=== PATIENT | female | born 1950 | race Caucasian/White ===

== ENCOUNTER 2016-07-19 11:26 | Emergency (ER) | payer OTHER ==
[2016-07-19 11:31] VITALS: TEMP 97.9
--- NOTE | 2016-07-19 11:46 | CPEKG ---
Heart Rate: 63 RR Interval: 952 P-R Interval: 156 QRSD Interval: 82 QT Interval: 400 QTC Interval: 410 P [place]: 7 QRS [place]: 54 T Wave [place]: 9 EKG Severity - NORMAL ECG - EKG Impression: SINUS RHYTHM Electronically Signed By: Damián Ramirez 19-Jul-2016 14:16:02
[2016-07-19] MEDS ORDERED: NS 1,000 ML IV ONE (11:51)
--- NOTE | 2016-07-19 11:56 | EDPHY ---
H & P Stated Complaint: JAW PAIN WITH HX OF SAME DIZZINESS, NAUSEA HPI/ROS: CHIEF COMPLAINT: jaw pain, dizziness HISTORY OF PRESENT ILLNESS: patient reports a 2 hour history of jaw pain. This started while in yoga this morning started on the left and quickly became apparent on the right side. It was mild to moderate persistent. Then associated with a mild bilateral headache, dizziness. No chest pain of any kind prior to this, during this or at this time. No shortness of breath. Nausea but no vomiting. No diaphoresis. No abdominal or urinary complaints. No syncope. Symptoms are similar to many episodes she has had in the past that she attributes to stress, except the jaw pain started prior to the sensation of stress. She has no fever or chills. She took her Xanax and 325 mg aspirin today. These have mildly improved her symptoms. No other associated complaints or modifying factors. FAMILY HISTORY CARDIAC: mother had an NE at 50 PRIOR CARDIAC WORKUP: stress test and angiography 3-4 years ago. Reportedly normal REVIEW OF SYSTEMS: Ten systems reviewed and are negative unless otherwise noted in the HPI EXAMINATION: General Appearance: Alert, no distress Head: normocephalic, atraumatic Eyes: Pupils equal and round, no conjunctival pallor or injection ENT, Mouth: Mucous membranes moist Neck: Normal inspection, supple, non-tender Respiratory: Lungs are clear to auscultation. No wheezing, rhonchi or crackles. Cardiovascular: Regular rate and rhythm . No murmur. Pulses intact distally. Gastrointestinal: Abdomen is soft and nontender Back: non-tender, no bony abnormalities Neurological: A&O, nonfocal, normal gait . Strength is symmetric in all limbs. No dysmetria. No pronator drift. Skin: Warm and dry, no rash Extremities: Nontender, no pedal edema Psychiatric: Mood and affect normal DIFFERENTIAL DIAGNOSES: Including but not limited to in no particular order: Acute Chest Pain, ACS, Stable Angina, Pneumonia, PE, duodenitis, gastritis, esophagitis, GERD MDM: 11:52 a.m. possible cardiac equivalent without any chest pain. The symptoms started around 10:00 a.m. while she was in yoga. This was jaw pain, mild headache, dizziness and feeling somewhat anxious. She had no chest pain of any kind previous or during. These are similar to prior episodes with the exception of the jaw pain starting before her anxiety. She does have a history of these that elicited a stress test and coronary angiogram 4 years ago that was reportedly normal. She is resting comfortably in hemodynamically stable at this time 1:15 p.m. jaw pain, mild headache and dizziness. Patient has the appearance of a possible anginal equivalent. EKG is unremarkable. Troponin is negative. Chest x-ray normal. Laboratory studies are all within normal limits. We had a discussion regarding all of her symptoms, and she says that she is feeling significantly better. I did offer and recommend admission for serial troponins to rule out ACS, although this is of low suspicion. The patient has declined. We discussed risks, benefits and alternatives, she is comfortable being discharged home. She says that she feels 100% better and feels that the Xanax was helpful. She has no chest pain or any symptoms of any kind at this time. She prefers to see her primary care physician and discussed cardiology referral rather than being admitted at this time. She is stable for discharge home and will follow up with them accordingly. Return to the ER for any chest pain Or return of symptoms. EKG: Interpreted by Dr. Ramirez rate is 63 beats per minute. Normal sinus rhythm. [place] interval 156. QTC interval 400. Normal axis. No ST depression or elevation. T-waves inverted only in AVR. No signs of ischemia. Interpretation: Normal sinus rhythm SUPERVISION: This patient was independently evaluated without the aide of supervising physician. Source: Patient, Family, Old records Exam Limitations: No limitations - Personal History Current Tetanus/Diphtheria Vaccine: No Current Tetanus Diphtheria and Acellular Pertussis (TDAP): No - Medical/Surgical History Hx Asthma: No Hx Chronic Respiratory Disease: No Hx Diabetes: No Hx Cardiac Disease: No Hx Renal Disease: No Hx Cirrhosis: No Hx Alcoholism: No Hx HIV/AIDS: No Hx Splenectomy or Spleen Trauma: No Other PMH: JAW PAIN ? REASON, HTN, HIGH CHOLESTEROL. DEPRESSION - Social History Smoking Status: Never smoked Constitutional: Initial Vital Signs Temperature (C) 97.9 F 07/19/16 11:28 Heart Rate 66 07/19/16 11:28 Respiratory Rate 18 07/19/16 11:28 Blood Pressure 130/88 H 07/19/16 11:28 O2 Sat (%) 94 07/19/16 11:28 O2 Delivery Mode Room Air Allergies/Adverse Reactions: Penicillins Allergy (Severe, Verified 07/19/16 11:31) Rash Sulfa (Sulfonamide Antibiotics) Allergy (Verified 07/19/16 11:31) Home Medications: Medication Instructions Recorded Atorvastatin Calcium [Lipitor 10 10 mg PO DAILY 07/19/16 mg (*)] Hydrochlorothiazide [HCTZ (*)] 25 mg PO DAILY 07/19/16 MIRTAZAPINE [Remeron 7.5 mg] 30 mg PO HS 07/19/16 Metoprolol Succinate 50 mg PO 07/19/16 Valacyclovir HCl [Valacyclovir] 500 mg PO 07/19/16 Medical Decision Making - Data Points Laboratory Results: Laboratory Results 07/19/16 11:44 07/19/16 11:44 07/19/16 07/19/16 07/19/16 11:44 11:44 11:44 WBC 5.37 10^3/uL 10^3/uL (3.80-9.50) RBC 4.96 10^6/uL 10^6/uL (4.18-5.33) Hgb 15.4 g/dL g/dL (12.6-16.3) Hct 43.6 % % (38.0-47.0) MCV 87.9 fL fL (81.5-99.8) MCH 31.0 pg pg (27.9-34.1) MCHC 35.3 g/dL g/dL (32.4-36.7) RDW 12.5 % % (11.5-15.2) Plt Count 159 10^3/uL 10^3/uL (150-400) MPV 10.1 fL fL (8.7-11.7) Neut % (Auto) 70.7 % % (39.3-74.2) Lymph % (Auto) 20.3 % % (15.0-45.0) [place] % (Auto) 8.0 % % (4.5-13.0) Eos % (Auto) 0.4 % L % (0.6-7.6) Baso % (Auto) 0.2 % L % (0.3-1.7) Nucleat RBC Rel Count 0.0 % % (0.0-0.2) Absolute Neuts (auto) 3.80 10^3/uL 10^3/uL (1.70-6.50) Absolute Lymphs (auto) 1.09 10^3/uL 10^3/uL (1.00-3.00) Absolute Monos (auto) 0.43 10^3/uL 10^3/uL (0.30-0.80) Absolute Eos (auto) 0.02 10^3/uL L 10^3/uL (0.03-0.40) Absolute Basos (auto) 0.01 10^3/uL L 10^3/uL (0.02-0.10) Absolute Nucleated RBC 0.00 10^3/uL 10^3/uL (0-0.01) Immature Gran % 0.4 % % (0.0-1.1) Immature Gran # 0.02 10^3/uL 10^3/uL (0.00-0.10) PT 13.0 SEC SEC (12.0-15.0) INR 0.99 (0.83-1.16) APTT 24.9 SEC SEC (23.0-38.0) Sodium 141 mEq/L mEq/L (134-144) Potassium 4.0 mEq/L mEq/L (3.5-5.2) Chloride 105 mEq/L mEq/L (97-110) Carbon Dioxide 24 mEq/l mEq/l (22-31) Anion Gap 12 mEq/L mEq/L (8-16) BUN 15 mg/dL mg/dL (7-23) Creatinine 0.7 mg/dL mg/dL (0.6-1.0) Estimated GFR > 60 Glucose 96 mg/dL mg/dL (70-100) Calcium 9.6 mg/dL mg/dL (8.5-10.4) Total Bilirubin 0.8 mg/dL mg/dL (0.1-1.4) Conjugated Bilirubin 0.3 mg/dL mg/dL (0.0-0.5) Unconjugated Bilirubin 0.5 mg/dL mg/dL (0.0-1.1) AST 24 IU/L IU/L (14-46) ALT 40 IU/L IU/L (9-52) Alkaline Phosphatase 49 IU/L IU/L (38-126) Troponin I < 0.012 ng/mL ng/mL (0-0.034) NT-Pro-B Natriuret Pep 85 pg/mL pg/mL (0-125) Total Protein 6.7 g/dL g/dL (6.3-8.2) Albumin 4.3 g/dL g/dL (3.5-5.0) Medications Given: Discontinued Medications Sodium Chloride (Ns) 1,000 mls @ 0 mls/hr IV ONCE ONE PRN Reason: Wide Open Stop: 07/19/16 11:52 Last Admin: 07/19/16 12:10 Dose: 1,000 mls Departure - Departure Disposition: Home, Routine, Self-Care Clinical Impression: Jaw pain, Dizziness Condition: Good Instructions: Dizziness (ED) Additional Instructions: Contact primary care physician and information security specialist for follow-up. Return to ER should she change her mind. Please return to the ER for any chest pain of any kind. Referrals: Enriqueta Navarro MD [Primary Care Provider] - As per Instructions Ira Zazueta MD [Medical Doctor] - As per Instructions
[2016-07-19 11:58] LABS: % IMMATURE GRANULYOCYTES 0.4 % (0.0-1.1); ABSOLUTE IMMATURE GRANULOCYTES 0.02 10^3/uL (0.00-0.10); ADD DIFF? NO; ADD MORPH? NO; ADD SCAN? NO; ATYPICAL LYMPHOCYTE FLAG 0 (0-99); FRAGMENT RBC FLAG 0 (0-99); HEMATOCRIT 43.6 % (38.0-47.0); HEMOGLOBIN 15.4 g/dL (12.6-16.3); LEFT SHIFT FLG 0 (0-99); LIPEMIA HEMOLYSIS FLAG 90 (0-99); MEAN CELL HEMOGLOBIN CONCENTR. 35.3 g/dL (32.4-36.7); MEAN CELL VOLUME 87.9 fL (81.5-99.8); MEAN PLATELET VOLUME 10.1 fL (8.7-11.7); PLATELET CLUMPS FLAG 0 (0-99); PLATELET COUNT 159 10^3/uL (150-400); RED BLOOD CELL COUNT 4.96 10^6/uL (4.18-5.33); RED CELL DISTRIBUTION WIDTH 12.5 % (11.5-15.2)
[2016-07-19 12:05] LABS: INR 0.99 (0.83-1.16)
[2016-07-19 12:06] LABS: APTT 24.9 SEC (23.0-38.0)
[2016-07-19 12:12] LABS: ALANINE AMINOTRANSFERASE 40 IU/L (9-52); ALBUMIN 4.3 g/dL (3.5-5.0); ALKALINE PHOSPHATASE 49 IU/L (38-126); ANION GAP 12 mEq/L (8-16); ASPARTATE AMINOTRANSFERASE 24 IU/L (14-46); BILIRUBIN,TOTAL 0.8 mg/dL (0.1-1.4); BILIRUBIN-CONJUGATED 0.3 mg/dL (0.0-0.5); BILIRUBIN-UNCONJUGATED 0.5 mg/dL (0.0-1.1); CALCIUM 9.6 mg/dL (8.5-10.4); CARBON DIOXIDE 24 mEq/l (22-31); CHLORIDE 105 mEq/L (97-110); CREATININE 0.7 mg/dL (0.6-1.0); GLOMERULAR FILTRATION RATE > 60; GLUCOSE 96 mg/dL (70-100); SODIUM 141 mEq/L (134-144); TOTAL PROTEIN 6.7 g/dL (6.3-8.2)
[2016-07-19 12:23] LABS: TROPONIN I < 0.012 ng/mL (0-0.034)
[2016-07-19 13:58] VITALS: BP 112/71; PULSE 62; RESP 14; O2SAT 95
== END 2016-07-19 13:58 | disposition home or self-care (01) ==
DX: R68.84 Jaw pain (principal); R42 Dizziness and giddiness; I10 Essential (primary) hypertension

== ENCOUNTER 2016-09-10 07:14 | Day surgery (SDC) | payer OTHER ==
[2016-09-10] MEDS ORDERED: FAMOTIDINE 20 MG TAB PO ONE (07:16)
[2016-09-10] MEDS ORDERED: ASPIRIN EC 325 MG TAB PO ONE ×2 (07:16→07:38)
[2016-09-10] MEDS ORDERED: diphenhydrAMINE 25 MG CAP PO ONE ×2 (07:16→07:38)
[2016-09-10] MEDS ORDERED: DIAZEPAM 5 MG TAB PO ONE (07:16)
[2016-09-10] MEDS ORDERED: NS 1,000 ML IV ONE (07:16)
--- NOTE | 2016-09-10 07:34 | CPEKG ---
Heart Rate: 60 RR Interval: 1000 P-R Interval: 160 QRSD Interval: 78 QT Interval: 400 QTC Interval: 400 P [place]: 70 QRS [place]: 58 T Wave [place]: 13 EKG Severity - NORMAL ECG - EKG Impression: SINUS RHYTHM Electronically Signed By: Keith Brooks 11-Sep-2016 08:23:22
[2016-09-10] MEDS ORDERED: DIAZEPAM 5 MG TAB ONE (07:38)
[2016-09-10] MEDS ORDERED: FAMOTIDINE 20 MG TAB ONE (07:38)
[2016-09-10 08:02] LABS: % IMMATURE GRANULYOCYTES 0.4 % (0.0-1.1); ABSOLUTE IMMATURE GRANULOCYTES 0.02 10^3/uL (0.00-0.10); ADD DIFF? NO; ADD MORPH? NO; ADD SCAN? NO; ATYPICAL LYMPHOCYTE FLAG 10 (0-99); FRAGMENT RBC FLAG 0 (0-99); HEMATOCRIT 41.5 % (38.0-47.0); HEMOGLOBIN 14.7 g/dL (12.6-16.3); LEFT SHIFT FLG 0 (0-99); LIPEMIA HEMOLYSIS FLAG 90 (0-99); MEAN CELL HEMOGLOBIN 30.4 pg (27.9-34.1); MEAN CELL HEMOGLOBIN CONCENTR. 35.4 g/dL (32.4-36.7); MEAN CELL VOLUME 85.7 fL (81.5-99.8); MEAN PLATELET VOLUME 9.7 fL (8.7-11.7); PLATELET CLUMPS FLAG 10 (0-99); PLATELET COUNT 180 10^3/uL (150-400); RED BLOOD CELL COUNT 4.84 10^6/uL (4.18-5.33); RED CELL DISTRIBUTION WIDTH 12.1 % (11.5-15.2)
[2016-09-10 08:08] LABS: INR 0.91 (0.83-1.16); PROTIME(PATIENT) 12.2 SEC (12.0-15.0)
[2016-09-10 08:17] LABS: ANION GAP 13 mEq/L (8-16); CALCIUM 9.4 mg/dL (8.5-10.4); CARBON DIOXIDE 25 mEq/l (22-31); CHLORIDE 104 mEq/L (97-110); CHOLESTEROL 133 mg/dL (140-220); CHOLESTEROL/HDL RATIO 3.41 RATIO (1.00-4.44); CREATININE 0.8 mg/dL (0.6-1.0); GLOMERULAR FILTRATION RATE > 60; GLUCOSE 104 mg/dL (70-100); HIGH DENSITY LIPOPROTEIN 39 mg/dL (40-85); LDL/HDL RATIO 1.41 RATIO (1.00-3.22); LOW DENSITY LIPOPROTEIN 55 mg/dL (80-100); NON-HIGH DENSITY LIPOPROTEIN 94 mg/dL (90-129); POTASSIUM 3.8 mEq/L (3.5-5.2); SODIUM 142 mEq/L (134-144); TRIGLYCERIDE 195 mg/dL (35-135); VERY LOW DENSITY LIPOPROTEINS 39 mg/dL (8-25)
[2016-09-10] MEDS ORDERED: MIDAZOLAM 2 MG/2 ML VIAL ONE (09:14)
[2016-09-10] MEDS ORDERED: fentaNYL 100 MCG/2 ML INJ ONE (09:14)
[2016-09-10] MEDS ORDERED: IOPAMIDOL (ISOVUE-370) 150 ML BTL IV ONE ×2 (09:14→10:09)
[2016-09-10] MEDS ORDERED: LIDOCAINE 1% 30 ML SDV ONE (09:14)
[2016-09-10] MEDS ORDERED: VERAPAMIL 5 MG/2 ML VIAL ONE (09:16)
[2016-09-10] MEDS ORDERED: HEPARIN 10,000 UNIT/10 ML MDV ONE (09:16)
[2016-09-10] MEDS ORDERED: NITROGLYCERIN 1,500 MCG/15 ML VIAL MISC ONE (09:55)
--- NOTE | 2016-09-10 11:01 | PDDXCAT ---
Diagnostic Cath Note - . Date: 09/10/16 Intervention: Intravascular Ultrasound *Procedure 1. Selective coronary angiography 2. Intravascular Ultrasound (IVUS) Indication: I was called for intraoperative consultation by Dr. Zazueta after the identification of an ostial right coronary artery (RCA) lesion on selective coronary angiography. Access: right radial artery *Materials Left Heart Cath size: 5F Left Heart Cath materials: JR4.0, IVUS *Findings-Selective Coronary Angiography RCA: There is a 40%-50% ostial RCA lesion which was partially responsive to Nitroglycerin. We proceeded with IVUS to ensure the lesion is not obstructive. IVUS revealed there is an eccentric and partially calcified atherosclerotic lesion comprising ~20% of the total cross sectional area of the RCA. The RCA is smaller at the ostium than in the proximal segment. This does not appear to be related to flow-limiting coronary artery disease. *Summary Assessment/Conclusion: 1. Non-flow limiting coronary artery disease of the ostial RCA as described above. Intervention was not needed/warranted at this time. The patient appears to be a good candidate for medical management. Please see Dr. Zazueta's dictated note for a more detailed summary and plan.
--- NOTE | 2016-09-10 11:34 | CPIP ---
[f rep st] INVASIVE CARDIAC PROCEDURE DATE OF PROCEDURE: 09/10/2016 PROCEDURES: 1. Left heart catheterization. 2. Coronary angiography. 3. Left ventriculography. INDICATIONS FOR PROCEDURE: Anginal equivalent and moderate-risk stress test in a patient with known coronary disease. COMPLICATIONS: None. DESCRIPTION OF PROCEDURE: N.p.o. status was confirmed, informed consent obtained, and timeout perfo rmed. The patient was brought to the catheterization laboratory and prepped and draped in sterile f ashion. Adequate conscious sedation was achieved with Versed and fentanyl IV. 1% lidocaine was use d for local anesthesia in the right radial area. Using modified Seldinger technique, a 5-[place] int roducer sheath was placed in the right radial artery. JR4 and JL3.5 catheters were used for right c oronary angiography and left coronary angiography, respectively. Pigtail catheter was used for left ventriculography. FINDINGS: 1. The left main is normal. Bifurcates into the LAD and left circumflex. 2. The LAD reaches the apex. There is 1 principal diagonal vessel. There is a 20%proximal LAD elizabeth nosis and 30% mid-LAD stenosis. 30% ostial 1st diagonal stenosis. MAKAYLA-3 flow throughout the vesse l. 3. Left circumflex has 3 medium-sized obtuse marginals. There is no significant disease in the ves rafia, just minimal luminal irregularities. 4. The right coronary is dominant. With initial catheter insertion, there appears to be spasm of t he ostium of the vessel. This improved moderately with 200 mcg of intracoronary nitroglycerin. The right coronary artery is dominant. The rest of the vessel appears normal. HEMODYNAMICS: Aortic pressure 122/70. LV pressure 122/8 with an LV end-diastolic pressure of 21. Left ventricular ejection fraction 70% with normal wall motion. CONCLUSIONS: 1. Diffuse nonflow-limiting disease in this right-dominant system. 2. Interventional consult with Dr. Alegria was obtained. An IVUS of the RCA was performed. Please see his separate report. In summary, there is no more than 20% stenosis in the RCA including no mor e than 20% ostial stenosis. 3. Likely vasospasm of the right coronary artery, which may contribute to the patient's anginal equ ivalent, which is jaw pain. 4. The patient's right radial arteriotomy site was sealed with a TR band. 5. She was taken to the [facility] in stable condition and results discussed with the patient's . 6. Follow up as scheduled. No change in medications. Continue p.r.n. nitroglycerin, statin, aspir in, and Norvasc. /[id number]/MODL
== END 2016-09-10 14:30 | disposition home or self-care (01) ==
LOC: FCATH 07:14
PROVIDERS: ATTEND Internal Medicine Cardiovascular Disease
PROC: B2151ZZ Fluoroscopy of Left Heart using Low Osmolar Contrast (ICD-10-PCS; principal; 2016-09-10)
PROC: B240ZZ3 Ultrasonography of Single Coronary Artery, Intravascular (ICD-10-PCS; principal; 2016-09-10)
PROC: 4A023N7 Measurement of Cardiac Sampling and Pressure, Left Heart, Percutaneous Approach (ICD-10-PCS; principal; 2016-09-10)
PROC: B2111ZZ Fluoroscopy of Multiple Coronary Arteries using Low Osmolar Contrast (ICD-10-PCS; principal; 2016-09-10)
DX: I25.119 Atherosclerotic heart disease of native coronary artery with unspecified angina pectoris (principal); I10 Essential (primary) hypertension; E78.5 Hyperlipidemia, unspecified
CPT/HCPCS: 92978; 93005; 93458; C1753; C1769; C1887; J1644; J2250; J3010; Q9967